=== PATIENT | male | born 1960 | race Caucasian/White ===

== ENCOUNTER 2024-05-13 09:28 | Day surgery (SDC) | payer OTHER ==
[~2024-05-13] VITALS: Ht 167.6 cm; Wt 87.1 kg
[~2024-05-13 09:28] MED LIST: ALBU8.5H; FAMO40TA3 PO; FLUTISP; LISI20TA33 PO; NAPR220C14 PO; NS 1,000 ML IV ONE; PREG50CA3 PO; SYMB80INH
[2024-05-13] MEDS ORDERED: fentaNYL 100 MCG/2 ML INJECTION As Ordered ONE (10:48)
[2024-05-13] MEDS ORDERED: LIDOCAINE 2% 100MG/5ML SDV (FOR ANES.) As Ordered ONE (10:48)
[2024-05-13] MEDS ORDERED: propofoL 200 MG/20 ML VIAL As Ordered ONE (10:48)
[2024-05-13 12:08] VITALS: TEMP 97.7
[2024-05-13 12:25] VITALS: BP 142/84; O2SAT 97
== END 2024-05-13 12:35 | disposition home or self-care (01) ==
LOC: M OPP 09:28
PROVIDERS: ATTEND Surgery
DX: K21.00 Gastro-esophageal reflux disease with esophagitis, without bleeding (principal); K30 Functional dyspepsia; R13.13 Dysphagia, pharyngeal phase; Z79.1 Long term (current) use of non-steroidal anti-inflammatories (NSAID); Z79.51 Long term (current) use of inhaled steroids; Z79.899 Other long term (current) drug therapy; F17.220 Nicotine dependence, chewing tobacco, uncomplicated
CPT/HCPCS: 43239; 88305; J3010